=== PATIENT | male | born 1960 | race Caucasian/White ===

== ENCOUNTER → 2018-01-24 | Outpatient (CLI) | payer OTHER ==
[~2018-01-24] MED LIST: ALPR0.5T PO; ASPI-482 PO; ATORVASTATIN CA80 MG PO; CANA300T PO; CARV6.252 PO; CHOL2000 PO; CITA20TA9 PO; CLOP75TA PO; DEXT10CA10 PO; GLIM4TAB PO; IBUP-1060 PO; LANS30CA66 PO; LIRA0.6P SQ; LIRA0.6P2 SQ; LISI-334 PO; LISI-338 PO; OMEG1CAP38 PO; PANT40TA5 PO; PHEN37.599 PO; PRAV40TA2 PO; RANO10002 PO; TADA5TAB PO; TAMS0.4C2 PO; TEST200V3 IM; UBID200C32 PO; ZOLP10TA PO; [UNRECOGNIZED DRUG - CODE] PO
[2018-01-24] MEDS: IOHEXOL 240 MG/ML 50ML VIAL. PO ONE (13:30)
[2018-01-24] MEDS: IOHEXOL 300 MG/ML 100ML VIAL. IV ONE (14:04)
--- NOTE | 2018-01-24 16:15 | KCIC ---
EXAM: CT Chest, Abdomen and Pelvis with IV contrast CLINICAL HISTORY: Atypical chest pain. Right-sided Abdominal pain. History of umbilical and bilateral inguinal hernia repair. COMPARISON: None. TECHNIQUE: Helical CT of the chest, abdomen and pelvis was performed following the administration of intravenous contrast. Oral contrast was administered. Axial, coronal and sagittal reformatted images were generated. ---PQRS compliance statement - One or more of the following individualized dose reduction techniques were utilized for this study: 1. Automated exposure control 2. Adjustment of the mA and/or kV according to patient size 3. Use of iterative reconstruction technique--- FINDINGS: Chest: Heart is not enlarged. No pericardial effusion. Coronary artery calcifications are seen. No axillary lymphadenopathy. No mediastinal or hilar lymphadenopathy by size criteria. No pleural effusion or pneumothorax. 3 mm lingular lung nodule (image 40) is seen. No lobar consolidation. Abdomen and Pelvis: No focal liver lesion. Gallbladder is normal. No intra or extrahepatic biliary ductal dilatation. Spleen is unremarkable. Pancreas is normal. Adrenal glands are unremarkable. Symmetric nephrograms. Subcentimeter left interpolar renal hypodense lesions are too small to characterize. No hydronephrosis. Apparent mild thickening of the bladder wall is likely from cystitis or under distended state. No small or large bowel dilatation. Moderate colonic stool content is seen. Colonic diverticulosis. No evidence of acute diverticulitis. Appendix is normal. Prostate is unremarkable. Trace bilateral hydroceles. Changes of left inguinal hernia mesh repair are seen. Bones: Changes of left hip arthroplasty are partially profiled. Degenerative changes of the spine are seen. IMPRESSION: 1. No evidence for bowel obstruction. No definite renal tract calculi are seen. 2. Bladder wall thickening possibly cystitis or from underdistended state. 3. Diverticulosis without evidence of acute diverticulitis. 4. 3 mm lingular lung nodule seen. Per Fleischner Society guidelines for incidentally found solid nodules measuring less than 6 mm, no follow-up is necessary if patient is considered at low risk for lung cancer. If patient is considered to be at high risk, such as with history of smoking, then CT follow-up in about 12 months can be considered. Electronically signed by: Ronnie Moreno MD (01/24/2018 4:11 PM) [id number]
== END | disposition home or self-care (01) ==
LOC: KCIC CT 12:45
PROVIDERS: ATTEND Neuromusculoskeletal Medicine & OMM
DX: K57.30 Diverticulosis of large intestine without perforation or abscess without bleeding (principal); K40.90 Unilateral inguinal hernia, without obstruction or gangrene, not specified as recurrent; I10 Essential (primary) hypertension; R91.8 Other nonspecific abnormal finding of lung field; Z88.1 Allergy status to other antibiotic agents; Z88.8 Allergy status to other drugs, medicaments and biological substances
CPT/HCPCS: 71260; 74177; 82565; Q9966; Q9967

== ENCOUNTER → 2018-03-18 | Outpatient (CLI) | payer OTHER ==
[~2018-03-18] MED LIST changes: +AMLO5TAB7 PO; +DULA1.5P SQ
--- NOTE | 2018-03-18 19:05 | PAIN ---
DATE OF SERVICE: 03/18/2018 DIAGNOSES: 1. Thoracic radiculopathy with thoracic degenerative disk disease. 2. Lumbar radiculopathy with lumbar degenerative disk disease. 3. Cervical radiculopathy with cervical degenerative disk disease. HISTORY OF PRESENT ILLNESS: The patient is a 57-year-old male who returns for followup, last seen 04/12/2017. The patient had lumbar epidural steroid injections and cervical epidural injections with very good results. The patient reports over the past 5-6 weeks, he has had increased pain after doing some rock moving and shoveling activities at home in his mid-back, radiating into the right side significantly into the ribs around to the front of the rib cage on the right side, starting in the mid back. The patient reports it is unbearable at times, tingling, cramping, stabbing, aching, sharp, shooting, becoming more severe with time and activity. The patient reports it is on and off in his limbs, but is at the ribs on the right side primarily. The patient reports that it is worst. Pain rates as a 10+ on a scale of 10, 8 on average and is 5 at its least and is an 8 today. The patient reports no new motor or sensory deficits. No new bowel or bladder incontinence or loss of function. The patient reports it is awakening him from sleep frequently, has to reposition especially if lays on his right side and has been going on for about 4-5 months now after the activity, which was in November. The patient reports no loss of motor function with significant radiating pain from the mid back around the right side in a radicular pattern to the right flank and ribs. PHYSICAL EXAMINATION: VITAL SIGNS: The patient's blood pressure is 135/80, pulse 80, respirations 16, temperature 98.4 degrees Fahrenheit, height is 5 feet 9 inches and weight is 213 pounds. GENERAL: The patient is awake, alert, oriented, appropriate, very pleasant demeanor. HEENT: Shows normocephalic, atraumatic. Extraocular muscles are intact and symmetrical. Oral cavity: Mucous membranes moist and pink. Dentition is intact. NECK: Shows anterior throat supple without palpable lymphadenopathy noted. Swallow reflex is symmetrical. CHEST: Shows normal with inspection. Breath sounds are clear to auscultation bilaterally. HEART: Shows S1, S2 clear. No murmurs auscultated. ABDOMEN: Soft, nontender, nondistended. No palpable organomegaly is noted. No rebound or guarding demonstrated. BACK: Shows spine grossly in the midline. Normal-appearing cervical lordotic curvature, thoracic kyphotic curvature, and lumbar lordotic curvature. Thoracic kyphotic curvature is intact and paraspinous musculature is intact as well. With palpation shows some moderate tenderness, more on the right than the left in the mid to low distribution of the thoracic paraspinous muscles, but without significant asymmetry. No trigger points, no specific radiation with palpation, no tenderness over the spinous processes. The patient shows good rotational motion of the thoracic spine with some minor tenderness with right lateral rotation and extension as well as forward flexion. The patient reproduces the radiating pain only with standing or sitting in an upright position. Does radiate to the right ribs in the mid to lower rib margin on the right side only, not the left. The patient's low back shows some moderate tenderness, but only diffusely in the middle upper and lower distribution of paraspinous musculature in the lumbar distribution, but again without radiation and good rotational motion both laterally greater than 10 degrees right and left as well as extension greater than 10 degrees, forward flexion 45 degrees without significant pain reported. EXTREMITIES: The patient's lower extremities show deep tendon reflexes 2+ in the patellar tendons. Motor exam is strong with 5/5 dorsiflexion and extension. Upper extremities are 2+ biceps and triceps tendons. Motor exam is strong with gear shaver set up operator strength rated at 5/5 and equal as is bicep and tricep flexion. Peripheral pulses are 1+ posterior tibial, 2+ radial without edema bilaterally. Options were discussed with the patient. The patient's old chart was reviewed as is his current medication regimen updated. Current review of systems is updated today as well. We will preauthorize the patient for a thoracic epidural steroid injection with radicular pain radiating to the right side in the approximately T8-T10 region dermatomally. The patient will try Medrol Dosepak in the meantime. The patient was given instruction as well as side effects to be aware of with the medication. We will follow up in approximately one week. We will plan on thoracic epidural steroid injection at that time. SCOTT TALAVERA MD DR: MARION/kevin JOB#: [id number] / [id number]
== END | disposition home or self-care (01) ==
LOC: PNCL 09:11
PROVIDERS: ATTEND Anesthesiology
DX: M50.123 Cervical disc disorder at C6-C7 level with radiculopathy (principal); M51.14 Intervertebral disc disorders with radiculopathy, thoracic region; M51.16 Intervertebral disc disorders with radiculopathy, lumbar region
CPT/HCPCS: 99212

== ENCOUNTER → 2018-04-01 | Outpatient (CLI) | payer OTHER ==
[~2018-04-01] MED LIST changes: +IOHEXOL 180 MG/ML 10 ML VIAL. ONE; +methylPREDNISolone ACETATE 40 MG/ML VIAL. ONE; +methylPREDNISolone ACETATE 80 MG/ML VIAL. ONE
--- NOTE | 2018-04-01 21:09 | PAIN ---
DATE OF SERVICE: 04/01/2018 PROGRESS NOTE FOR PAIN CLINIC: DIAGNOSES: Thoracic degenerative disk disease with thoracic radiculopathy. HISTORY OF PRESENT ILLNESS: A 57-year-old male returns for followup status post previous evaluation and preauthorization for thoracic epidural steroid injection. The patient returns with authorization and would like to proceed, has still significant pain in the mid back, upper back radiating to the right flank and chest. The patient reports no new motor or sensory deficits, no new bowel or bladder incontinence or other complaints with radiating pain around the right side and about a T8-T9 dermatomal distribution. The patient with degenerative disk disease and changes in the thoracic spine as previously. The patient rates his pain a 10 on a scale of 10 at its worst, 7-8 on average and a 5 at its least and is a 7 today. The patient reports it is aching, sharp, dull, shooting, cramping, stabbing in the right side, becoming more constant, not always severe but severe at times and occasionally unbearable. The patient reports going up steps, weakness in his left knee as well as pain in the low back into the left lower extremity, which he has had for some time as well. The patient reports no significant improvement with Medrol Dosepak that we tried on last visit, wakes him up from sleep occasionally, but not every night. The patient reports no new motor or sensory deficits, no new bowel or bladder incontinence or other complaints. PHYSICAL EXAMINATION: VITAL SIGNS: The patient's blood pressure 122/74, pulse 62, respirations 18, temperature is 98.2 degrees Fahrenheit, height is 5 feet 9 inches, weight is 206 pounds. GENERAL: The patient is awake, alert, oriented, appropriate, very pleasant demeanor. HEENT: Head is normocephalic, atraumatic. Extraocular movements intact and symmetrical. Oral cavity: Mucous membranes moist and pink. Dentition is intact. NECK: Shows anterior throat supple without palpable lymphadenopathy noted. Swallow reflex is symmetrical. CHEST: Shows normal with inspection. Breath sounds clear to auscultation bilaterally. HEART: Shows S1, S2 clear. No murmurs auscultated. ABDOMEN: Soft, nontender, nondistended. No palpable organomegaly is noted. No rebound or guarding demonstrated. BACK: Shows spine grossly in the midline. Normal appearing thoracic kyphosis and some slight flattening of lumbar lordotic curvature. Thoracic paraspinous muscle shows symmetrical on inspection, with palpation shows some [id number]-st-qhdhpeya tenderness, more on the right than the left with palpation, but only diffusely without radiation. The patient has good rotational motion normal in the thoracic and lumbar spines. EXTREMITIES: Lower extremities show deep tendon reflexes 2+ in the patellar and tendo calcaneus tendons are 1+. Motor exam is strong with 5/5 dorsiflexion, extension, quadriceps and hamstring flexion. Peripheral pulses are 1+ posterior tibial. No peripheral edema is noted bilaterally. PLAN: Options were discussed with the patient. The patient's old chart was reviewed as his current medication regimen updated. Current review of systems updated today as well and we will proceed with a thoracic epidural steroid injection today with fluoroscopic guidance. Risks were again discussed including, but not limited to bleeding, infection, possibility of epidural hematoma, subsequent neurologic compromise, dural puncture, headaches, spinal cord and/or nerve damage, side effects of steroid medication and poor results regarding pain control. The patient understands and wished to proceed. The patient will return to the clinic in approximately 2 weeks for followup, was counseled as to return appointment, activity level and side effects to be aware of. DIAGNOSES: Thoracic radiculopathy, thoracic degenerative disk disease. PROCEDURE: Thoracic epidural steroid injection T8-T9 level using C-arm fluoroscopic guidance under sterile prep and drape using local anesthetic. MEDICATION INJECTED: A total of 120 mg Depo-Medrol plus 10 mL of preservative-free normal saline and 2 mL of Isovue for contrast. CONDITION AT DISCHARGE: Stable. The patient tolerated the procedure well and had no complications. CSOTT TALAVERA MD DR: MARION/kevin JOB#: [id number] / [id number]
== END | disposition home or self-care (01) ==
LOC: PNCL 08:52
PROVIDERS: ATTEND Anesthesiology
DX: M51.14 Intervertebral disc disorders with radiculopathy, thoracic region (principal); Z88.1 Allergy status to other antibiotic agents; Z88.8 Allergy status to other drugs, medicaments and biological substances
CPT/HCPCS: 62321; J1030; J1040; Q9965

== ENCOUNTER → 2018-04-15 | Outpatient (CLI) | payer OTHER ==
[~2018-04-15] MED LIST changes: -IOHEXOL 180 MG/ML 10 ML VIAL. ONE; -methylPREDNISolone ACETATE 40 MG/ML VIAL. ONE; -methylPREDNISolone ACETATE 80 MG/ML VIAL. ONE
--- NOTE | 2018-04-16 00:41 | PAIN ---
DATE OF SERVICE: 04/15/2018 DIAGNOSES: 1. Lumbar radiculopathy with lumbar degenerative disk disease. 2. Cervical radiculopathy with cervical degenerative disk disease. 3. Thoracic radiculopathy with thoracic degenerative disk disease. HISTORY OF PRESENT ILLNESS: The patient is a 57-year-old male who returns for followup status post thoracic epidural steroid injection x 1. The patient reports about 80% improvement after the injection for the first about 2 weeks following injection. The patient reports the pain is returning now very rapidly in the right side and right flank and disturbing him from sleep once again. The patient reports it is a 10 on a scale of 10 at its worst, 10 on average, 5-6 at its least and it is a 6 today. The patient reports it is aching in the side and the back as well as sharp pain, shooting pain along the right side with some stabbing pain as well in the mid back and right flank and side as well the thorax. The patient reports on and off in intensity, can be severe at times, tingling sensation as well in the low back and left leg. The patient reports having some increased urinary incontinence, however, since his last visit and also some very significant swelling in his left testicle. The patient does have an appointment to see his primary physician tomorrow regarding this. The patient reports no new motor or sensory deficits or other complaints. PHYSICAL EXAMINATION: VITAL SIGNS: Blood pressure 130/85, pulse 77, respirations 18, temperature 98.2 degrees Fahrenheit, weight is 206 pounds. GENERAL: The patient is awake, alert, oriented, appropriate, very pleasant demeanor. HEENT: Shows normocephalic, atraumatic. Extraocular movements are intact and symmetrical. Oral cavity: Mucous membranes are moist and pink. Dentition is intact. NECK: Shows anterior throat supple without palpable lymphadenopathy noted. Swallow reflex is symmetrical. CHEST: Shows normal on inspection. Breath sounds are clear to auscultation bilaterally. HEART: Shows S1, S2 clear. No murmurs auscultated. ABDOMEN: Soft, nontender, nondistended. No palpable organomegaly is noted. BACK: Shows spine grossly in the midline. Some moderate tenderness with palpation on mid thoracic spine in the paraspinous distribution, more on the right than the left, but appears roughly symmetrical without evidence of atrophy, hypertrophy, without radiation or trigger points in this region. The patient's lumbar spine shows some moderate tenderness with palpation bilaterally, but only diffusely without radiation as well. EXTREMITIES: Lower extremities show deep tendon reflexes at 2+ in patellar and tendo-calcaneus tendons. Motor exam is strong with dorsiflexion and extension rated at 5/5 and equal bilaterally. Peripheral pulses are 1+ posterior tibia. No peripheral edema is noted. Options were discussed with the patient. The patient's old chart was reviewed as is his current medication regimen updated. Current review of systems is updated today as well. We will preauthorize the patient for a second thoracic epidural steroid injection as he did very well after the first injection, but only for limited time. Within 2 weeks, the pain is returning on the right flank in a radicular pattern, roughly T8-T9 dermatomal pattern of radiculopathy on the right side. The patient will continue doing strengthening and stretching exercises, walking daily as tolerated. We will wait for preauthorization. The patient in the meantime follow up with his primary physician regarding testicular swelling and urinary incontinence. SCOTT TALAVERA MD DR: MARION/kevin JOB#: [id number] / [id number]
== END | disposition home or self-care (01) ==
LOC: PNCL 08:34
PROVIDERS: ATTEND Anesthesiology
DX: M51.16 Intervertebral disc disorders with radiculopathy, lumbar region (principal); M50.10 Cervical disc disorder with radiculopathy, unspecified cervical region; M51.14 Intervertebral disc disorders with radiculopathy, thoracic region
CPT/HCPCS: 99212

== ENCOUNTER → 2018-04-30 | Outpatient (CLI) | payer OTHER ==
[~2018-04-30] MED LIST changes: +CARV6.2511 PO; -CARV6.252 PO; +IOHEXOL 180 MG/ML 10 ML VIAL. ONE; +OXYC1TAB22 PO; +methylPREDNISolone ACETATE 40 MG/ML VIAL. ONE; +methylPREDNISolone ACETATE 80 MG/ML VIAL. ONE
--- NOTE | 2018-04-30 13:14 | PAIN ---
DATE OF SERVICE: 04/30/2018 DIAGNOSES: 1. Thoracic radiculopathy with thoracic degenerative disk disease. 2. Lumbar radiculopathy with lumbar degenerative disk disease. HISTORY OF PRESENT ILLNESS: The patient is a 57-year-old male who returns for followup status post thoracic epidural steroid injection x 1. The patient reports about 80% improvement for the first 2 weeks, pain returning now in the flank and right chest in the mid thoracic region, more on the right, but the pain radiating up and down in the upper back and lower back. The patient reports he was doing quite well, waiting for preauthorization. He returns with this now, would like to proceed with a second injection today. Reports the pain is aching, sharp, shooting, tingling, stabbing. He reports that is 10 on a scale of 10, 7-8 on average and a 4-5 at its least and is a 7 today. The patient also complains of low back pain and bilateral lower extremity pain, more on the right than the left with radicular pain in L5-S1 dermatomal distribution in posterior gluteus, posterior thigh, posterior calf, sometimes worse on the left, but currently worse on the right. The patient did well with epidural steroid injections for this in the past as well. The patient reports no new motor or sensory deficits, no new bowel or bladder incontinence or other complaints. PHYSICAL EXAMINATION: VITAL SIGNS: The patient's blood pressure is 123/71, pulse 67, respirations 18, temperature 98.2 degrees Fahrenheit, height 5 feet 9-1/2 inches, weight is 204 pounds. GENERAL: The patient is awake, alert, oriented, appropriate, very pleasant demeanor. HEENT: Head is normocephalic, atraumatic. Extraocular movements intact and symmetrical. Oral cavity, mucous membranes are moist and pink. Dentition is intact. NECK: Shows anterior throat supple without palpable lymphadenopathy noted. Swallow reflex symmetrical. CHEST: Shows normal on inspection. Breath sounds clear to auscultation bilaterally. HEART: Shows S1 and S2 clear. No murmurs auscultated. ABDOMEN: Obese, soft, nontender, nondistended. No palpable organomegaly is noted. No rebound or guarding demonstrated. BACK: Shows spine grossly in the midline, normal-appearing cervical lordotic curvature, thoracic kyphotic curvature. Lumbar lordotic curve is slightly flattened. Thoracic paraspinous muscle shows symmetrical with some moderate tenderness in the mid upper distribution of paraspinous muscles without radiation. The patient has good rotational motion both laterally as well as extension and flexion without exacerbation of pain. The patient's lumbar spine shows paraspinous musculature is symmetrical throughout the upper, middle and lower distribution of paraspinous muscles, with palpation in the lumbar distribution shows some moderate tenderness in the lumbar distribution in the inferior aspect bilaterally without radiation once again. The patient has good rotational motion of lumbar spine as well, both lateral extension and flexion without significant difficulty. EXTREMITIES: The patient's upper extremities show deep tendon reflexes 2+ in the biceps, triceps tendons. Motor exam is strong with histology technologist strength rated 5/5, as is bicep and tricep flexion. Lower extremities show deep tendon reflexes at 1+ in the patellar and tendo calcaneus tendons. Motor exam is strong with 5/5 dorsiflexion, extension, quadriceps and hamstring flexion. Peripheral pulses are 2+ radial, 1+ posterior tibial. No peripheral edema is noted bilaterally. Options were discussed with the patient. The patient's old chart was reviewed as his current medication regimen updated. Current review of systems updated today as well. We will proceed with a second in this series of thoracic epidural steroid injection today with fluoroscopic guidance. Risks were discussed including but not limited to bleeding, infection, possibility of epidural hematoma and subsequent neurological compromise, dural puncture, headaches, spinal cord and/or nerve damage, side effects of steroid medication and poor results regarding pain control. The patient understands and wished to proceed. The patient will return to clinic in approximately 2 weeks. We discussed a potential lumbar epidural steroid injection on his return as he is having significant radicular pain in L5-S1 dermatomal distribution, somewhat greater on the right than the left, into the posterior calf, radiating into the leg. Again, worse with standing, walking. He continues to do stretching and strengthening exercises, and we encouraged him to do this as best tolerated as he has had some therapy in the past, is still doing exercises associated with those for his low back as well as his neck, but with radicular pattern in the L5-S1 dermatomal distribution, more on the right, but present bilaterally. The patient will return to clinic in approximately 2 weeks. We will plan on lumbar epidural steroid injection. DIAGNOSES: 1. Thoracic radiculopathy with thoracic degenerative disk disease. 2. Lumbar radiculopathy with lumbar degenerative disk disease. PROCEDURES: Thoracic epidural steroid injection today under sterile prep and drape using local anesthetic. MEDICATION INJECTED: A total of 120 mg Depo-Medrol, plus 10 mL of preservative free normal saline, 2 mL of Isovue for contrast at the T8-T9 level using C-arm fluoroscopic guidance under sterile prep and drape. CONDITION AT DISCHARGE: Stable. The patient tolerated the procedure well, had no complications. SCOTT TALAVERA MD DR: MARION/ekvin JOB#: [id number] / [id number]
== END | disposition home or self-care (01) ==
LOC: PNCL 08:46
PROVIDERS: ATTEND Anesthesiology
DX: M51.14 Intervertebral disc disorders with radiculopathy, thoracic region (principal); M51.16 Intervertebral disc disorders with radiculopathy, lumbar region; Z88.1 Allergy status to other antibiotic agents; Z88.8 Allergy status to other drugs, medicaments and biological substances
CPT/HCPCS: 62321; J1030; J1040; Q9965

== ENCOUNTER → 2018-05-02 | Outpatient (CLI) | payer OTHER ==
[~2018-05-02] MED LIST changes: -IOHEXOL 180 MG/ML 10 ML VIAL. ONE; -methylPREDNISolone ACETATE 40 MG/ML VIAL. ONE; -methylPREDNISolone ACETATE 80 MG/ML VIAL. ONE
--- NOTE | 2018-05-02 13:00 | KCIC ---
EXAM: Thoracic spine MRI without contrast. HISTORY: Pain. TECHNIQUE: Multiplanar, multisequence magnetic resonance imaging of the thoracic spine was performed without contrast. COMPARISON: Chest CT dated 01/24/2018. Lumbar spine MRI dated 05/06/2013. FINDINGS: The exam is slightly limited due to motion. There is minimal anterolisthesis of C7 on T1. The vertebral arriaga are normal in height and demonstrate normal marrow signal intensity. There is endplate remodeling at multiple levels. There is disc desiccation at T5-T9. No suspicious osseous lesion is seen. No suspicious spinal cord lesion is seen. The conus terminates at L1. At T5-T6, there is a broad-based left paracentral disc protrusion with thin superior extrusion extending 10 mm superior to the disc space. This slightly deforms the left ventral aspect of the spinal cord. There is also mild left facet arthropathy at this level. The combination of these findings are not associated with significant stenosis. At T6-T7, there is a broad-based right paracentral disc protrusion with 5 mm superior extrusion. This deforms the right ventral aspect of the spinal cord. There is no significant stenosis. At T8-T9, there is a shallow right paracentral disc protrusion superimposed on and endplate remodeling. There is no stenosis. At T9-T10, there is a posterior central disc protrusion with 4 mm superior and inferior extrusion. This deforms the ventral aspect of the spinal cord. There is mild left greater than right facet arthropathy. There is no significant stenosis. There is mild facet arthropathy at the remainder of the lower thoracic levels, without significant stenosis. IMPRESSION: 1. Multilevel degenerative change within the thoracic spine, described in detail above. This includes disc protrusions and slight extrusions at multiple levels which slightly deforms the ventral aspect of the spinal cord. No significant stenosis or spinal cord signal abnormality is seen. 2. Note is made that there are degenerative changes involving the cervical and lumbar spine which are not formally assessed on this exam. Electronically signed by: Michelle Arnold MD (05/02/2018 12:57 PM) [id number]
== END | disposition home or self-care (01) ==
LOC: KCIC MRI 11:39
PROVIDERS: ATTEND Physician Assistant Medical
DX: M51.24 Other intervertebral disc displacement, thoracic region (principal); M12.88 Other specific arthropathies, not elsewhere classified, other specified site
CPT/HCPCS: 72146

== ENCOUNTER → 2018-05-20 | Outpatient (CLI) | payer OTHER ==
[~2018-05-20] MED LIST changes: +IOHEXOL 180 MG/ML 10 ML VIAL. ONE; +MAGN400C PO; +TRAM50TA PO; +methylPREDNISolone ACETATE 40 MG/ML VIAL. ONE; +methylPREDNISolone ACETATE 80 MG/ML VIAL. ONE
--- NOTE | 2018-05-20 10:11 | PAIN ---
DATE OF SERVICE: 05/20/2018 PROGRESS NOTE FOR PAIN CLINIC DIAGNOSES: 1. Lumbar radiculopathy with lumbar degenerative disk disease. 2. Thoracic degenerative disk disease with thoracic radiculopathy. 3. Cervical radiculopathy with cervical degenerative disk disease. HISTORY OF PRESENT ILLNESS: The patient is a 57-year-old male who returns for followup status post thoracic epidural steroid injection x 2. The patient reports about 70% improvement. No longer has a stabbing pain in the back and right side, but is now more of a dull aching in the right side. It is much better, especially over the last few days. The patient reports his low back; however, has significant pain and that his chief complaint is aches, stiffness, popping with rotation, dull pain in the low back as well as aching and tingling. The patient reports no new motor or sensory deficits, no new bowel or bladder incontinence or other complaints. The patient reports the pain is 8 on a scale of 10 at its worst, 7 on average, 5 at its least and is a 5 today. The patient reports again with main complaints of low back and upper back, is doing better. The patient reports he has been sleeping well at night. It is worse with walking and standing, better with lying down or sitting. PHYSICAL EXAMINATION: VITAL SIGNS: The patient's blood pressure is 108/70, pulse 74, respirations 18, temperature 97.8 degrees Fahrenheit, height 5 feet 9-1/2 inches, weight is 202 pounds. GENERAL: The patient is awake, alert, oriented, appropriate, very pleasant demeanor. HEENT: Shows normocephalic, atraumatic. Extraocular movements intact and symmetrical. Oral cavity: Mucous membranes moist and pink. Dentition is intact. NECK: Shows anterior throat supple without palpable lymphadenopathy noted. Swallow reflex is symmetrical. CHEST: Shows normal on inspection. Breath sounds clear to auscultation bilaterally. HEART: Shows S1, S2 clear. No murmurs auscultated. ABDOMEN: Soft, nontender, nondistended. No palpable organomegaly is noted. No rebound or guarding demonstrated. BACK: Shows spine grossly in the midline. Normal appearing thoracic kyphosis and lumbar lordotic curvature. Lumbar paraspinous muscle shows symmetrical on inspection, on palpation shows some moderate tenderness but only diffusely without significant radiation. EXTREMITIES: Lower extremities show deep tendon reflexes at 1+ in the patellar and tendo calcaneus tendons. Motor exam is strong with 5/5 dorsiflexion, extension, quadriceps and hamstring flexion. Peripheral pulses are 1+ posterior tibia. No peripheral edema is noted. Options were discussed with the patient. The patient's old chart was reviewed as his current medication regimen updated. Current review of systems updated today as well. We will proceed with lumbar epidural steroid injections of third in this series after 2 thoracic epidural steroid injections. Risks were again discussed including, but not limited to bleeding, infection, possibility of epidural hematoma, subsequent neurologic compromise, dural puncture, headaches, spinal cord and/or nerve damage, side effects of steroid medication and poor results regarding pain control. The patient understands and wished to proceed. The patient will return to clinic in approximately 2 weeks for followup. He was counseled as to return appointment, activity level and side effects to be aware of. DIAGNOSIS: Lumbar radiculopathy with lumbar degenerative disk disease. PROCEDURE: Lumbar epidural steroid injection, translaminar approach L5-S1 level using C-arm fluoroscopic guidance under sterile prep and drape using local anesthetic. MEDICATION INJECTED: A total of 120 mg Depo-Medrol plus 10 mL of preservative-free normal saline and 2 mL of Isovue for contrast. CONDITION AT DISCHARGE: Stable. The patient tolerated procedure well, had no complications. SCOTT TALAVERA MD DR: MARION/kevin JOB#: [id number] / [id number]
== END ==
LOC: PNCL 07:47
PROVIDERS: ATTEND Anesthesiology
DX: M51.16 Intervertebral disc disorders with radiculopathy, lumbar region (principal); M51.14 Intervertebral disc disorders with radiculopathy, thoracic region; M50.10 Cervical disc disorder with radiculopathy, unspecified cervical region
CPT/HCPCS: 62323; J1030; J1040; Q9965